=== PATIENT | female | born 1945 | race Two or more races ===

== ENCOUNTER 2017-02-13 23:59 | Emergency (ER) | payer OTHER, MEDICAID ==
[~2017-02-13] VITALS: Ht 160 cm; Wt 68.0 kg
[2017-02-14 00:41] LABS: Basophils # (auto) 0.1 uL; Basophils % (auto) 1.2 % (0.0-2.0); Eosinophils # (auto) 0.3 uL; Eosinophils % (auto) 4.8 % (0.0-7.0); Hematocrit 33.9 % (36.0-46.0); Lymphocytes # (auto) 1.6 uL; Lymphocytes % (auto) 29.1 % (10.0-50.0); Mean Corpuscular Hemoglobin 28.4 pg (28.0-32.0); Mean Corpuscular Hgb Conc. 32.5 g/dL (32.0-36.0); Mean Corpuscular Volume 87.4 fL (80.0-100.0); Mean Platelet Volume 8.6 fL (7.4-10.4); Monocytes # (auto) 0.4 uL; Monocytes % (auto) 7.7 % (0.0-12.0); Neutrophils # (auto) 3.2 uL; Neutrophils % (auto) 57.2 % (37.0-80.0); Platelet Count (auto) 182 10^3/uL (140-450); White Blood Cell 5.6 10^3/uL (4.4-10.8)
[2017-02-14 00:55] LABS: INR 0.95 (0.9-1.15); Partial Thromboplastin Time 25.4 sec (22.64-33.71); Prothrombin Time 10.3 sec (9.37-12.3)
[2017-02-14 00:56] LABS: Anion Gap 10 (5-15); Aspartate Aminotransferase 23 U/L (15-37); BUN/Creatinine Ratio 17.2; Blood Urea Nitrogen 10 mg/dL (7-18); Calcium 9.4 mg/dL (8.5-10.1); Carbon Dioxide 26 mmol/L (21-32); Chloride 103 mmol/L (98-107); GFR African American 131 mL/min; GFR Non-African American 109 mL/min; Glucose 150 mg/dL (74-106); Potassium 3.7 mmol/L (3.5-5.1); Sodium 139 mmol/L (136-145)
[2017-02-14 01:01] LABS: Alkaline Phosphatase 61 U/L (45-117); Bilirubin, Total 0.5 mg/dL (0.2-1.0)
[2017-02-14 01:03] LABS: B-Type Natriuretic Peptide 41.6 pg/mL (0-100); Temperature: 21.6 C (20.0-25.0)
[2017-02-14] MEDS ORDERED: SODIUM CHLORIDE 0.9% 1,000 ML IV ONE (07:15)
[2017-02-14 07:45] VITALS: BP 134/75
== END 2017-02-14 09:24 | disposition home or self-care (01) ==
LOC: ER 02-14 00:09
CPT/HCPCS: 36415 ×2; 71010 ×2; 80053 ×2; 83735 ×2; 83880 ×2; 84443 ×2; 84484 ×2; 85025 ×2; 85610 ×2; 85730 ×2; 93005 ×2; 94761 ×2; 96360 ×2; 99285; J7030

== ENCOUNTER → 2022-09-21 | Outpatient (CLI) | payer OTHER, MEDICAID | END | disposition home or self-care (01) | LOC: LAB 09:54 | PROVIDERS: ATTEND Internal Medicine Pulmonary Disease | DX: Z01.812 Encounter for preprocedural laboratory examination (principal); Z20.822 Contact with and (suspected) exposure to COVID-19 | CPT/HCPCS: 36415; 87426 ==

== ENCOUNTER 2023-07-09 18:37 | Inpatient (IN) | payer OTHER, MEDICAID ==
[~2023-07-09] VITALS: Ht 162.6 cm; Wt 57.0 kg
[2023-07-09 19:40] LABS: Basophils # (auto) 0.1 10 ^3/uL (0-0.2); Basophils % (auto) 2.4 % (0.0-2.0); Eosinophils # (auto) 0.2 10 ^3/uL (0-0.8); Eosinophils % (auto) 3.2 % (0.0-7.0); Hematocrit 33.1 % (36.0-46.0); Hemoglobin 11.2 g/dL (12.2-16.2); Lymphocytes # (auto) 1.6 10 ^3/uL (0.4-5.4); Lymphocytes % (auto) 31.8 % (10.0-50.0); Mean Corpuscular Hemoglobin 30.1 pg (28.0-32.0); Mean Corpuscular Hgb Conc. 33.8 g/dL (32.0-36.0); Mean Corpuscular Volume 89.1 fL (80.0-100.0); Monocytes # (auto) 0.4 10 ^3/uL (0-1.3); Monocytes % (auto) 8.1 % (0.0-12.0); Neutrophils # (auto) 2.8 10 ^3/uL (1.6-8.6); Neutrophils % (auto) 54.5 % (37.0-80.0); Nucleated Red Blood Cells % 0.1 %; Red Blood Cells 3.72 10^6/uL (4.0-5.20); Red Cell Distribution Width 13.3 % (11.8-14.3); White Blood Cell 5.1 10^3/uL (4.4-10.8)
[2023-07-09 19:45] LABS: Urine Bacteria NONE SEEN /hpf (None Seen); Urine Blood Negative /uL (Negative); Urine Clarity Clear (Clear); Urine Color Colorless (Yellow); Urine Protein, UAD Negative (Negative); Urine Specific Gravity 1.008 (1.001-1.035); Urine Urobilinogen Normal (Negative); Urine WBC <1 /hpf (0 - 5)
[2023-07-09 20:04] LABS: Alanine Aminotransferase 16 U/L (7-40); Albumin 4.6 g/dL (3.2-4.8); Alkaline Phosphatase 55 U/L (46-116); Anion Gap 10 (5-15); Aspartate Aminotransferase 11 U/L (13-40); BUN/Creatinine Ratio 17.2 (10.0-20.0); Bilirubin, Total 0.4 mg/dL (0.2-1.0); Blood Urea Nitrogen 11 mg/dL (9-23); Calcium 10.1 mg/dL (8.7-10.4); Carbon Dioxide 23 mmol/L (20-30); Chloride 99 mmol/L (98-107); Glucose 174 mg/dL (74-106); Potassium 3.8 mmol/L (3.5-5.1); Sodium 132 mmol/L (136-145); Total Protein 7.2 g/dL (5.7-8.2)
[2023-07-10] MEDS ORDERED: LACTATED RINGER'S 1,000 ML IV ONE (04:15)
[2023-07-10 04:45] VITALS: PULSE 73; RESP 12; O2SAT 99
[2023-07-10] MEDS ORDERED: DEXTROSE (50%) 50ML SYRG IV PRN (05:00)
[2023-07-10] MEDS ORDERED: MORPHINE SULFATE 4 MG/ML SYR/VIAL IV ONE (05:00)
[2023-07-10] MEDS ORDERED: ONDANSETRON HCL 4 MG/2 ML VIAL IV ONE (05:00)
[2023-07-10] MEDS ORDERED: ACETAMINOPHEN 325 MG TAB PO PRN (05:00)
[2023-07-10] MEDS ORDERED: ONDANSETRON HCL 4 MG/2 ML VIAL IV PRN (05:00)
[2023-07-10] MEDS ORDERED: IBUPROFEN 600 MG TAB PO ONE (05:15)
[2023-07-10] MEDS: ACCU-CHEK COMFORT CURVE STRIP VI SCH ×4 (06:55→22:06)
[2023-07-10] MEDS: InsuLIN REG 1unit/0.01ml Soln (100units/ml) SC SCH ×4 (06:58→22:00)
[2023-07-10] MEDS ORDERED: LORazepam 2MG/ML-1ML VIAL IV PRN (09:30)
[2023-07-10] MEDS: ASPirin 81 mg TAB PO SCH (10:00)
[2023-07-10] MEDS: LOSARTAN POTASSIUM 50 MG TAB PO SCH (10:00)
[2023-07-10] MEDS: HCTZ 25 MG TAB PO SCH (10:00)
[2023-07-10] MEDS ORDERED: ENOXAPARIN SOD 40 MG/0.4 ML SYRINGE SC SCH (10:00)
[2023-07-10 10:11] VITALS: PULSE 75; RESP 20; O2SAT 96
[2023-07-10 11:24] LABS: INR 0.98 (0.9-1.15); Partial Thromboplastin Time 26.1 SEC (24.5-34.5); Prothrombin Time 10.3 sec (9.3-11.8)
[2023-07-10] MEDS ORDERED: GADOTERATE MEG 7.5 MMOL/15ml INJ (0.5MMOL/ml) IV ONE (11:51)
[2023-07-10] MEDS ORDERED: HCTZ 25 MG TAB PO ONE (16:30)
[2023-07-10] MEDS ORDERED: TIMO0.5S32 EACHEYE (16:50)
[2023-07-10] MEDS ORDERED: IBUP-1455 PO (16:50)
[2023-07-10] MEDS ORDERED: METF-372 PO (16:50)
[2023-07-10] MEDS ORDERED: [UNRECOGNIZED DRUG - CODE] (16:50)
[2023-07-10] MEDS ORDERED: INSU1INJ19 SC (16:50)
[2023-07-10] MEDS ORDERED: GLUC-245 (16:50)
[2023-07-10] MEDS ORDERED: LATA0.008 EACHEYE (16:50)
[2023-07-10 17:24] VITALS: BP 130/67; PULSE 88; RESP 16; TEMP 98.3; O2SAT 95
[2023-07-10 18:00] LABS: % Iron Saturation 17.1 % (15-50)
[2023-07-10 18:03] LABS: Thyroid Stimulating Hormone 3.66 uIU/mL (0.55-4.78)
[2023-07-10 22:00] VITALS: BP 120/67; PULSE 72; RESP 18; TEMP 98.1; O2SAT 97
[2023-07-11 05:00] VITALS: BP 116/63; PULSE 76; RESP 16; TEMP 98.1; O2SAT 99
[2023-07-11] MEDS: ACCU-CHEK COMFORT CURVE STRIP VI SCH ×4 (06:16→22:00)
[2023-07-11 06:19] LABS: Basophils # (auto) 0.1 10 ^3/uL (0-0.2); Eosinophils # (auto) 0.2 10 ^3/uL (0-0.8); Eosinophils % (auto) 3.1 % (0.0-7.0); Hematocrit 33.5 % (36.0-46.0); Hemoglobin 11.1 g/dL (12.2-16.2); Lymphocytes # (auto) 1.2 10 ^3/uL (0.4-5.4); Mean Corpuscular Hemoglobin 29.9 pg (28.0-32.0); Mean Corpuscular Hgb Conc. 33.1 g/dL (32.0-36.0); Mean Corpuscular Volume 90.6 fL (80.0-100.0); Monocytes # (auto) 0.5 10 ^3/uL (0-1.3); Monocytes % (auto) 9.6 % (0.0-12.0); Neutrophils # (auto) 3.1 10 ^3/uL (1.6-8.6); Neutrophils % (auto) 62.3 % (37.0-80.0); Red Cell Distribution Width 13.3 % (11.8-14.3)
[2023-07-11] MEDS: InsuLIN REG 1unit/0.01ml Soln (100units/ml) SC SCH ×4 (06:23→22:03)
[2023-07-11 06:30] LABS: Calcium 9.3 mg/dL (8.7-10.4); Chloride 103 mmol/L (98-107); Potassium 3.7 mmol/L (3.5-5.1); Sodium 136 mmol/L (136-145)
[2023-07-11 06:31] LABS: Anion Gap 8 (5-15); Carbon Dioxide 25 mmol/L (20-30)
[2023-07-11 06:36] LABS: BUN/Creatinine Ratio 16.1 (10.0-20.0); Blood Urea Nitrogen 9 mg/dL (9-23); Glucose 169 mg/dL (74-106)
[2023-07-11 06:37] LABS: Magnesium 1.9 mg/dL (1.6-2.6)
[2023-07-11 06:42] LABS: Triglycerides 206 mg/dL (< 150)
[2023-07-11 06:43] LABS: LDL Cholesterol 142 mg/dL (< 100)
[2023-07-11 06:44] LABS: Cholesterol 204 mg/dL (< 200); HDL Cholesterol 43 mg/dL (40-59)
[2023-07-11 08:00] VITALS: PULSE 70; RESP 16; O2SAT 96
[2023-07-11] MEDS: HCTZ 25 MG TAB PO SCH (08:10)
[2023-07-11] MEDS ORDERED: FERROUS SULFATE 325mg EC TAB PO ONE (08:30)
[2023-07-11 09:00] VITALS: BP 123/66; PULSE 70; RESP 16; TEMP 97; O2SAT 96
[2023-07-11] MEDS: ASPirin 81 mg TAB PO SCH (09:35)
[2023-07-11] MEDS: LOSARTAN POTASSIUM 50 MG TAB PO SCH (09:35)
[2023-07-11] MEDS ORDERED: HCTZ 25 MG TAB PO SCH (10:00)
[2023-07-11 13:00] VITALS: BP 127/61; PULSE 74; RESP 18; TEMP 97.6; O2SAT 99
[2023-07-11] MEDS: FERROUS SULFATE 325mg EC TAB PO SCH (18:09)
[2023-07-11 20:00] VITALS: PULSE 85; RESP 19; O2SAT 96
[2023-07-11 22:00] VITALS: BP 121/78; PULSE 85; RESP 19; TEMP 97.6; O2SAT 96
[2023-07-11] MEDS: ATORVASTATIN 20 MG TAB PO SCH (22:00)
[2023-07-12 05:00] VITALS: BP 108/63; PULSE 84; RESP 18; TEMP 97.7; O2SAT 96
[2023-07-12] MEDS: ACCU-CHEK COMFORT CURVE STRIP VI SCH ×4 (06:03→21:21)
[2023-07-12] MEDS: InsuLIN REG 1unit/0.01ml Soln (100units/ml) SC SCH ×4 (06:05→21:25)
[2023-07-12] MEDS: FERROUS SULFATE 325mg EC TAB PO SCH ×2 (07:58→17:43)
[2023-07-12 09:00] VITALS: BP 118/64; PULSE 84; RESP 18; TEMP 97.4; O2SAT 94
[2023-07-12] MEDS: HCTZ 25 MG TAB PO SCH (09:50)
[2023-07-12] MEDS: ASPirin 81 mg TAB PO SCH (09:51)
[2023-07-12] MEDS: LOSARTAN POTASSIUM 50 MG TAB PO SCH (09:54)
[2023-07-12] MEDS ORDERED: ASPI-325 PO (10:55)
[2023-07-12] MEDS ORDERED: FER325T PO (10:55)
[2023-07-12] MEDS ORDERED: LOSA100T58 PO (10:55)
[2023-07-12] MEDS ORDERED: ATO40T PO (10:55)
[2023-07-12 13:00] VITALS: BP 145/74; PULSE 80; RESP 18; TEMP 98.2; O2SAT 98
[2023-07-12 17:00] VITALS: BP 124/73; PULSE 86; RESP 19; TEMP 97.5; O2SAT 92
[2023-07-12 20:20] VITALS: RESP 18
[2023-07-12] MEDS: ATORVASTATIN 20 MG TAB PO SCH (21:21)
[2023-07-12 22:00] VITALS: BP 148/67; PULSE 87; RESP 20; TEMP 97.3; O2SAT 94
[2023-07-13 05:00] VITALS: BP 114/55; PULSE 77; RESP 16; TEMP 97.4; O2SAT 96
[2023-07-13] MEDS: ACCU-CHEK COMFORT CURVE STRIP VI SCH (06:21)
[2023-07-13] MEDS: InsuLIN REG 1unit/0.01ml Soln (100units/ml) SC SCH (06:22)
[2023-07-13 08:00] VITALS: PULSE 93; RESP 17
[2023-07-13] MEDS: FERROUS SULFATE 325mg EC TAB PO SCH (08:12)
[2023-07-13 09:00] VITALS: BP 124/63; PULSE 93; RESP 17; TEMP 97.6; O2SAT 96
[2023-07-13] MEDS: HCTZ 25 MG TAB PO SCH (10:00)
[2023-07-13] MEDS: ASPirin 81 mg TAB PO SCH (10:00)
[2023-07-13] MEDS: LOSARTAN POTASSIUM 50 MG TAB PO SCH (10:00)
== END 2023-07-13 10:00 | disposition home health service (06) | DRG 312 ==
LOC: ER 18:37 → OVERFLOW 07-10 05:02 → WEST WING 07-10 15:35
PROVIDERS: ADMIT Internal Medicine Geriatric Medicine; ATTEND Student in an Organized Health Care Education/Training Program
DX: R55 Syncope and collapse (principal); E87.1 Hypo-osmolality and hyponatremia; H81.10 Benign paroxysmal vertigo, unspecified ear; E11.65 Type 2 diabetes mellitus with hyperglycemia; I10 Essential (primary) hypertension; R56.9 Unspecified convulsions; E78.5 Hyperlipidemia, unspecified; D64.9 Anemia, unspecified; G45.4 Transient global amnesia; Z86.73 Personal history of transient ischemic attack (TIA), and cerebral infarction without residual deficits; Z83.3 Family history of diabetes mellitus; Z90.710 Acquired absence of both cervix and uterus
CPT/HCPCS: 36415; 70553; 71045; 80048; 80053; 80061; 81001; 82728; 82962; 83036; 83540; 83550; 83615; 83735; 84443; 84484; 85025; 85045; 85610; 85730; 93005; 93306; 93886; 95819; 96360; 97110; 97116; 97163; 97530; G0378; J1815; J2405

== ENCOUNTER 2025-05-07 20:23 | Inpatient (IN) | payer OTHER, MEDICAID ==
[~2025-05-07] VITALS: Ht 149.9 cm; Wt 62.0 kg
[~2025-05-07 20:23] MED LIST: ASPI-325 PO; ATOR-507 PO; FER325T PO; GLUC-245; IBUP-1455 PO; INSU1INJ19 SC; LATA0.008 EACHEYE; LOSA-535 PO; METF-372 PO; TIMO0.5S32 EACHEYE; [UNRECOGNIZED DRUG - CODE]
[2025-05-07 21:06] VITALS: PULSE 78; RESP 20; O2SAT 97
[2025-05-07] MEDS: ACETAMINOPHEN 500 MG TAB or CAP PO ONE (21:28)
[2025-05-07] MEDS: ONDANSETRON HCL 4 MG/2 ML VIAL IV ONE (21:28)
[2025-05-07] MEDS: MORPHINE SULFATE INJ 2 MG/ml SYRG IV ONE (21:28)
[2025-05-07 21:37] LABS: Hematocrit 33.6 % (36.0-46.0); Hemoglobin 11.1 g/dL (12.2-16.2); Mean Corpuscular Hemoglobin 30.5 pg (28.0-32.0); Mean Corpuscular Volume 92.2 fL (80.0-100.0); Nucleated Red Blood Cells % 0.1 %
[2025-05-07 21:38] LABS: Urine Protein, UAD Negative (Negative)
--- NOTE | 2025-05-07 21:41 | ED.PDOC ---
Musculoskeletal HPI Comments 79 year old female presents to the ED via EMS with a chief complaint of LT hip pain s/p fall onset today (05/07/25). Patient states she was at home, was going to get up from recliner sofa when she slipped, landed on LT hip, heard a "pop." Patient states she had a LT hip replacement surgery about 15 minutes ago. She is currently experiencing 10/10, pain worsens with movement. PMHx HTN, HLD, DM. Denies head injury, LOC, nausea, vomiting, diarrhea, headache, abdominal pain, chest pain, shortness of breath. No other symptoms or modifying factors present at this time. Chief Complaint: Fall Injury Time Seen by MD: 21:25 Primary Care Provider: NONE Reviewed Notes: Medications, Allergies Allergies: Coded Allergies: NO KNOWN ALLERGIES (Unverified , 02/14/17) Home Meds Active Scripts Losartan Potassium (Losartan Potassium) 100 Mg Tab, 1 TAB PO DAILY, #30 TAB 5 Refills Prov:CELENA CLARK MD 07/12/23 Ferrous Sulfate (Ferrous Sulfate) 325 Mg Tab, 325 MG PO DAILY for 30 Days, #30 TAB 5 Refills Prov:CELENA CLARK MD 07/12/23 Atorvastatin Calcium (Lipitor) 40 Mg Tab, 1 TAB PO DAILY, #30 TAB 5 Refills Prov:CELENA CLARK MD 07/12/23 Aspirin (Aspirin Low Dose) 81 Mg Tab, 81 MG PO DAILY for 100 Days, #100 TAB 3 Refills Prov:CELENA CLARK MD 07/12/23 Reported Medications Insulin Glargine (Basaglar Kwikpen) 100 Unit/Ml Inj, SC 07/10/23 Ibuprofen Micronized (Ibuprofen) 800 Mg Tab, 1 TAB PO TID 07/10/23 Insulin Pen Needle (Easy Comfort Pen [place] 33G X 4 mm) 1 Mis Mis 07/10/23 Metformin Hydrochloride (Metformin Hcl) 1,000 Mg Tab, 1 TAB PO BID 07/10/23 Latanoprost (LATANOPROST) 0.005 % Narcisa, EACHEYE 07/10/23 Timolol Maleate (Ophth) (Timolol Maleate) 0.5 % Narcisa, EACHEYE 07/10/23 Glucose Blood (ONETOUCH VERIO IQ TEST ST) Verio Iq Maricarmen, STRIP 07/10/23 Information Source: Patient, Emergency Med Personnel Mode of Arrival: EMS Location: Left Extremity Location: Hip Timing: Hours Prehospital treatment: None Severity: Moderate Bear Weight: Limited Pain: Moderate Mechanism: Spontaneous Circumstances: Fall Onset of Symptoms: After Trauma Symptoms: Pain DVT Risk Factors: NONE History of: Hip Operation Associated signs and symptoms: Hip pain Vital Signs Vital Signs Date Time Temp Pulse Resp B/P (MAP) Pulse Ox O2 Delivery O2 Flow Rate FiO2 05/07/25 23:30 98.1 108 18 141/63 (89) 97 98.1 05/07/25 21:06 Room Air* 0 21 Physical Exam PHYSICAL EXAM: General: Awake, alert and oriented. No acute distress. Skin: Skin in warm, dry and intact without rashes or lesions. HEENT: The head is normocephalic and atraumatic. Conjunctivae are clear without exudates or hemorrhage. Sclera is non-icteric. Neck: Normal range of motion. No JVD. Cardiac: Regular rate Respiratory: No signs of respiratory distress. No Stridor. Extremities: Left hip tender Neurological: The patient is awake, alert and oriented to person, place, and time with normal speech. Speech is clear. There is no facial asymmetry. Psychiatric: Appropriate mood and affect. Good judgement and insight. Review of Systems: REVIEW OF SYSTEMS: General: No fever, no chills, or fatigue HEENT: No sore throat, no earache, no congestion, no neck pain. Cardiac: No chest pain. No palpitations. Lungs: No shortness of breath, no cough. GI: No nausea, no vomiting, no diarrhea, no constipation, no abdominal pain : No dysuria, frequency, or urgency. No hematuria. Musculoskeletal: Left hip pain Skin: No rash, no itching. 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 Was a procedure done?: No Differential Diagnosis EXT Differential Diagnosis: Other (Differential diagnoses considered include but are not limited to closed head injury, skull fracture, TBI, long bone fracture, rib fracture, pneumothorax, spinal fracture, spinal injury, cardiac contusion, organ laceration, pelvic fracture, laceration, soft tissue injury, vascular injury, other) X-Ray, Labs, Meds, VS Vital Signs Date Time Temp Pulse Resp B/P (MAP) Pulse Ox O2 Delivery O2 Flow Rate FiO2 05/07/25 23:30 98.1 108 18 141/63 (89) 97 98.1 05/07/25 23:16 77 18 123/78 05/07/25 21:28 78 20 166/87 05/07/25 21:06 98.1 76 20 161/93 (115) 97 98.1 05/07/25 21:06 78 20 97 Room Air* 0 21 05/07/25 20:30 97.8 100 18 160/74 (102) 96 97.8 Lab Test 05/07/25 21:28 05/07/25 21:25 Range/Units Urine Color Colorless Yellow Urine Clarity Clear Clear Urine pH 6.5 5.0-9.0 Urine Specific [place] 1.010 1.001-1.035 Urine Protein Negative Negative Urine Ketones 1+ H Negative Urine Blood Negative Negative /uL Urine Nitrite Negative Negative Urine Bilirubin Negative Negative Urine Urobilinogen Normal Negative mg/dL Urine Leukocyte Esterase 1+ Negative /uL Urine RBC <1 0 - 4 /hpf Urine Microscopic WBC 12 H 0-5 /HPF Urine Squamous Epithelial Cells Few <5 /hpf Urine Bacteria Many H None Seen /hpf Urine Glucose 3+ H Normal mg/dL White Blood Count 9.0 4.4-10.8 10^3/uL Red Blood Count 3.64 L 4.0-5.20 10^6/uL Hemoglobin 11.1 L 12.2-16.2 g/dL Hematocrit 33.6 L 36.0-46.0 % Mean Corpuscular Volume 92.2 80.0-100.0 fL Mean Corpuscular Hemoglobin 30.5 28.0-32.0 pg Mean Corpuscular Hemoglobin Concent 33.1 32.0-36.0 g/dL Red Cell Distribution Width 13.6 11.8-14.3 % Platelet Count 202 140-450 10^3/uL Mean Platelet Volume 8.9 6.9-10.8 fL Neutrophils (%) (Auto) 79.1 37.0-80.0 % Lymphocytes (%) (Auto) 12.4 10.0-50.0 % Monocytes (%) (Auto) 6.5 0.0-12.0 % Eosinophils (%) (Auto) 1.2 0.0-7.0 % Basophils (%) (Auto) 0.8 0.0-2.0 % Neutrophils # (Auto) 7.1 1.6-8.6 10 ^3/uL Lymphocytes # (Auto) 1.1 0.4-5.4 10 ^3/uL Monocytes # (Auto) 0.6 0-1.3 10 ^3/uL Eosinophils # (Auto) 0.1 0-0.8 10 ^3/uL Basophils # (Auto) 0.1 0-0.2 10 ^3/uL Nucleated Red Blood Cells 0.1 % Sodium Level 135 L 136-145 mmol/L Potassium Level 3.6 3.5-5.1 mmol/L Chloride Level 101 98-107 mmol/L Carbon Dioxide Level 22 20-31 mmol/L Anion Gap 12 5-15 Blood Urea Nitrogen 11 9-23 mg/dL Creatinine 0.66 0.550-1.02 mg/dL Glomerular Filtration Rate Calc 89 >90 mL/min BUN/Creatinine Ratio 16.7 10.0-20.0 Serum Glucose 221 H 74-106 mg/dL Calcium Level 10.3 8.7-10.4 mg/dL Current Medications Medications (Trade) Dose Ordered Sig/Rox Route Start Time Stop Time Status Last Admin Morphine Sulfate 2 mg ONCE ONCE IV 05/07/25 21:15 05/07/25 21:16 DC 05/07/25 21:28 Acetaminophen (Tylenol Tablet Or Capsule) 1,000 mg ONCE ONCE PO 05/07/25 21:15 05/07/25 21:16 DC 05/07/25 21:28 Ondansetron HCl (Zofran) 4 mg ONCE ONCE IV 05/07/25 21:15 05/07/25 21:16 DC 05/07/25 21:28 Cefepime HCl 50 ml @ 12.5 mls/hr ONCE ONCE IV 05/07/25 22:45 05/08/25 02:44 05/07/25 23:[address] [address] Ph: [phone] DIAGNOSTIC IMAGING Diagnostic Imaging Report : [id number] Signed PATIENT: TRELL KAUFMAN ACCT: [id number] UNIT: [id number] : 1945 LOC: ER ROOM / BED: / AGE / SEX: 79 / F ADM STATUS: REG ER SERVICE 12 ORDERING PHYSICIAN: SUKH LOCKHART MD PROCEDURE(s): LHPCT - CT L HIP WITH OUT CONTRAST REASON: L hip injury ORDER NUMBER(s): [id number], ACCESSION NUMBER(s): [id number] INDICATION: L hip injury COMPARISON: None TECHNIQUE: CT of the left hip was performed without contrast. Volume transverse images were obtained and reconstructed in multiple planes using bone and soft tissue algorithms. All CT scans at this medical facility are performed using dose modulation techniques as appropriate to a performed exam including the following: Automated exposure control was utilized; adjustment of the MA and/or KV according to patient size; and use of iterative reconstruction technique. Radiation Dose Information: CT Dose: CTDI volume is 9.4 mGy. Dose-length product is 348 mGy*cm FINDINGS: The alignment is normal. The joint spaces are normal. Minimally displaced acute traumatic fractures of the left superior pubic rami and left inferior pubic rami Surgical fixation hardware seen throughout the left femur. No evidence of hardware complication. There is no joint effusion. The soft tissues are normal. IMPRESSION: 1. Minimally displaced acute traumatic fractures of the left superior pubic rami and left inferior pubic rami 2. Surgical fixation hardware seen throughout the left femur. No evidence of hardware complication. ATED BY: LIZZETH COOPER MD DICTATED DATE/TIME: 05/07/252218 SIGNED BY: LIZZETH COOPER MD SIGNED DATE/TIME: 05/07/252218 CC: Time of 1ST Reevaluation: 21:55 Reevaluation 1ST: Improved Patient Education/Counseling: Need For Follow Up Family Education/Counseling: Need For Follow Up Departure 1 Departure Time of Disposition: 22:38 Impression: Primary Impression: Fracture of superior ramus of left pubis Additional Impressions: Fracture of left inferior pubic ramus Urinary tract infection Disposition: ADMITTED INPATIENT Condition: Stable Critical Care Note Critical Care Time?: No Stability Stability form required: No I personally scribed for MINTAH,CHAILLE A MD ([email or web address]) on 05/07/25 at 21:41. Electronically submitted by Amrita Manley ([email or web address]). I personally scribed for SUKH LOCKHART MD ([email or web address]) on 05/07/25 at 23:41. Electronically submitted by Amrita Manley ([email or web address]). SUKH LOCKHART MD May 07, 2025 21:41
[2025-05-07 21:48] LABS: Chloride 101 mmol/L (98-107); Potassium 3.6 mmol/L (3.5-5.1)
[2025-05-07 21:49] LABS: Anion Gap 12 (5-15); Calcium 10.3 mg/dL (8.7-10.4); Carbon Dioxide 22 mmol/L (20-31)
[2025-05-07 21:54] LABS: BUN/Creatinine Ratio 16.7 (10.0-20.0); Blood Urea Nitrogen 11 mg/dL (9-23); Glucose 221 mg/dL (74-106); Sodium 135 mmol/L (136-145)
--- NOTE | 2025-05-07 22:21 | DVH ---
INDICATION: L hip injury COMPARISON: None TECHNIQUE: CT of the left hip was performed without contrast. Volume transverse images were obtained and reconstructed in multiple planes using bone and soft tissue algorithms. All CT scans at this medical facility are performed using dose modulation techniques as appropriate t o a performed exam including the following: Automated exposure control was utilized; adjustment of th e MA and/or KV according to patient size; and use of iterative reconstruction technique. Radiation Dose Information: CT Dose: CTDI volume is 9.4 mGy. Dose-length product is 348 mGy*cm FINDINGS: The alignment is normal. The joint spaces are normal. Minimally displaced acute traumatic fractures of the left superior pubic rami and left inferior pubic rami Surgical fixation hardware seen throughout the left femur. No evidence of hardware complication. There is no joint effusion. The soft tissues are normal. IMPRESSION: 1. Minimally displaced acute traumatic fractures of the left superior pubic rami and left inferior pu bic rami 2. Surgical fixation hardware seen throughout the left femur. No evidence of hardware complication.
[2025-05-07] MEDS: CEFEPIME 1GM/ 50ML 50 ML IV ONE (23:05)
[2025-05-08] VITALS (10 sets, daily range): BP systolic 111–161; BP diastolic 55–81; PULSE 75–96; RESP 15–18; TEMP 97.9–99; O2SAT 92–94
--- NOTE | 2025-05-08 01:28 | DVHHP2 ---
History of Present Illness History of Present Illness This 79-year-old female with past medical history of DM2, HLD, HTN, left hip surgery 15 years ago, Anemia, Glaucoma BIBEMS due to left hip and left sided pubic area pain. As per patient, she lives alone, was trying to move herself from reclining chair at evening time and suddenly slipped, eventually landed on left side of the hip and started pain which is 10/10 intensity, localized, continuous dull pain, aggravated on movement and no relieving factor. Patient stated she heard a sound but not sure it is bone fracture or not.she had history of left hip surgery approximately 15 years ago. Patient denies hitting her head, loss of consciousness, vertigo, headache, chest pain, SOB, abdominal pain, dysuria. Susan (RN) interpreting [place] language. Patient ambulating at home with walker. 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 Family History: Nothing contributing Smoker: Non-Smoker Alcohol: Denies ETOH Use Drugs: Denies Drug Use Lives In: Home Allergy: No known allergic Review of Systems Constitutional: Yes: Other (Patient in acute distress due to pain); No: Fever, Chills, Sweats, Weakness, Malaise Eyes: No: Pain, Vision change, Conjunctivae inflammation, Eyelid inflammation, Other, Redness ENT: No: Ear pain, Ear discharge, Nose pain, Nose discharge, Nose congestion, Mouth pain, Mouth swelling, Throat pain, Throat swelling, Other Respiratory: No: Cough, Dry, Shortness of breath, SOB with excertion, Wheezing, Hemoptysis, Pleuritic Pain, Sputum, Wheezing, Other Gastrointestinal: No: Nausea, Vomiting, Abdominal Pain, Diarrhea, Constipation, Melena, Hematochezia, Other Genitourinary: No Dysuria, No Frequency, No Incontinence, No Hematuria, No Retention, No Other Musculoskeletal: leg pain; No: other, neck pain, shoulder pain, arm pain, back pain, hand pain, foot pain Skin: No: Rash, Lesions, Jaundice, Bruising, Other Allergies: Coded Allergies: NO KNOWN ALLERGIES (Unverified , 02/14/17) Exam Vital Signs Vital Signs Date Time Temp Pulse Resp B/P (MAP) Pulse Ox O2 Delivery O2 Flow Rate FiO2 05/07/25 23:30 98.1 108 18 141/63 (89) 97 98.1 05/07/25 21:06 Room Air* 0 21 General Appearance: Alert, moderate distress HEENT: Atraumatic, PERRLA, EOMI Respiratory: Clear to auscultation, Normal air movement Cardiovascular: Regular rate, Normal S1, Normal S2 Abdominal: Soft, No tenderness Extremities: No clubbing, No cyanosis, No edema, Other (Tenderness palpation on left hip area including pubic bone) Skin: No rashes, No breakdown Neuro: Other (Gait instability) Labs/Xrays Labs Test 05/07/25 21:28 05/07/25 21:25 Range/Units Urine Color Colorless Yellow Urine Clarity Clear Clear Urine pH 6.5 5.0-9.0 Urine Specific [place] 1.010 1.001-1.035 Urine Protein Negative Negative Urine Ketones 1+ H Negative Urine Blood Negative Negative /uL Urine Nitrite Negative Negative Urine Bilirubin Negative Negative Urine Urobilinogen Normal Negative mg/dL Urine Leukocyte Esterase 1+ Negative /uL Urine RBC <1 0 - 4 /hpf Urine Microscopic WBC 12 H 0-5 /HPF Urine Squamous Epithelial Cells Few <5 /hpf Urine Bacteria Many H None Seen /hpf Urine Glucose 3+ H Normal mg/dL White Blood Count 9.0 4.4-10.8 10^3/uL Red Blood Count 3.64 L 4.0-5.20 10^6/uL Hemoglobin 11.1 L 12.2-16.2 g/dL Hematocrit 33.6 L 36.0-46.0 % Mean Corpuscular Volume 92.2 80.0-100.0 fL Mean Corpuscular Hemoglobin 30.5 28.0-32.0 pg Mean Corpuscular Hemoglobin Concent 33.1 32.0-36.0 g/dL Red Cell Distribution Width 13.6 11.8-14.3 % Platelet Count 202 140-450 10^3/uL Mean Platelet Volume 8.9 6.9-10.8 fL Neutrophils (%) (Auto) 79.1 37.0-80.0 % Lymphocytes (%) (Auto) 12.4 10.0-50.0 % Monocytes (%) (Auto) 6.5 0.0-12.0 % Eosinophils (%) (Auto) 1.2 0.0-7.0 % Basophils (%) (Auto) 0.8 0.0-2.0 % Neutrophils # (Auto) 7.1 1.6-8.6 10 ^3/uL Lymphocytes # (Auto) 1.1 0.4-5.4 10 ^3/uL Monocytes # (Auto) 0.6 0-1.3 10 ^3/uL Eosinophils # (Auto) 0.1 0-0.8 10 ^3/uL Basophils # (Auto) 0.1 0-0.2 10 ^3/uL Nucleated Red Blood Cells 0.1 % Sodium Level 135 L 136-145 mmol/L Potassium Level 3.6 3.5-5.1 mmol/L Chloride Level 101 98-107 mmol/L Carbon Dioxide Level 22 20-31 mmol/L Anion Gap 12 5-15 Blood Urea Nitrogen 11 9-23 mg/dL Creatinine 0.66 0.550-1.02 mg/dL Glomerular Filtration Rate Calc 89 >90 mL/min BUN/Creatinine Ratio 16.7 10.0-20.0 Serum Glucose 221 H 74-106 mg/dL Calcium Level 10.3 8.7-10.4 mg/dL SEPSIS Sepsis Screen Date sepsis recognized/suspect: May 07, 2025 Time Sepsis recognized/suspect: 2107 Recent Procedure: No On Antibiotic Therapy: No Respiratory Rate >20: No Heart Rate >90: No Temp<36 C (96.8 F) or >38.3 C: No SBP <90 or MAP <65 mmHG: No New Acute Mental Status Change: No Is the patient on CPAP, BIPAP,: No Physician Orders Ct L Hip With Out Contrast (05/07/25 21:13) Cefepime 1gm/ 50ml (Maxipime 1gm/50ml) (05/07/25 22:45) Admit (05/07/25 23:58) Vital Signs Date Time Temp Pulse Resp B/P (MAP) Pulse Ox O2 Delivery O2 Flow Rate FiO2 05/07/25 23:30 98.1 108 18 141/63 (89) 97 98.1 05/07/25 23:16 77 18 123/78 05/07/25 21:28 78 20 166/87 05/07/25 21:06 98.1 76 20 161/93 (115) 97 98.1 05/07/25 21:06 78 20 97 Room Air* 0 21 05/07/25 20:30 97.8 100 18 160/74 (102) 96 97.8 Laboratory Tests Test 05/07/25 21:25 White Blood Count 9.0 10^3/uL (4.4-10.8) Medications Medications Dose Ordered Sig/Rox Route Start Time Stop Time Status Last Admin Dose Admin Acetaminophen 1,000 mg ONCE ONCE PO 05/07/25 21:15 05/07/25 21:16 DC 05/07/25 21:28 1,000 MG Cefepime HCl 50 ml @ 12.5 mls/hr ONCE ONCE IV 05/07/25 22:45 05/08/25 02:44 05/07/25 23:05 12.5 MLS/HR Morphine Sulfate 2 mg ONCE ONCE IV 05/07/25 21:15 05/07/25 21:16 DC 05/07/25 21:28 2 MG Ondansetron HCl 4 mg ONCE ONCE IV 05/07/25 21:15 05/07/25 21:16 DC 05/07/25 21:28 4 MG Assessment/Plan Assessment/Plan # Displaced acute traumatic fractures of the left superior pubic rami and left inferior pubic rami -Patient came with pain on hip and pubic area -History of fall at home before came to hospital -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 No evidence of hardware complication. -Received cefepime, acetaminophen, morphine, ondansetron in ER -Tylenol 650 mg p.o. p.r.n. -Dilaudid 0.5 mg IV stat -Morphine 2 mg IV q.6 p.r.n. for pain -Orthopedic consult # Urinary tract infection - UA : Ketones 1+, leukocyte esterase 1+, WBC 12, bacteria many -Ceftriaxone 1 g daily -Urine culture follow # Type 2 diabetes mellitus with hyperglycemia -CMP blood sugar 221, on admission -Hold home medicine metformin 1000 mg -Insulin sliding scale -HbA1c # Hyperlipidemia Atorvastatin 40 mg p.o. daily # Normocytic normochromic anemia -Hemoglobin 11.1, HCT 33.6 Ferrous sulfate 325 mg p.o. daily # Glaucoma -Timolol 0.5% 1 drop both eye b.i.d. -Latanoprost 0.005% 1 drop each eye daily # Hyponatremia Sodium 135 DIET: REGULAR GI prophylaxis: Pantoprazole 40 mg p.o. daily DVT prophylaxis: Lovenox 30 mg sc daily. Goals of care discussions, more than 29 minute spent. 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 Fischer. Plan discussed with: Patient, Other (Nurse) Date of Service: May 07, 2025 Billing Provider: TEN FISCHER MD Common Visit Codes: [id number] INP/OBS CARE (HIGH) Secondary Visit Codes: [id number] CARE PLAN 30 MINUTES LATHA OREILLY RESIDENT May 08, 2025 01:28
[2025-05-08] MEDS: HYDROmorphone HCL 2 MG/ML VL/or syr IV ONE (02:26)
[2025-05-08] MEDS ORDERED: DEXTROSE (50%) 50ML SYRG IV PRN (03:00)
--- NOTE | 2025-05-08 04:06 | DVH ---
CHEST RADIOGRAPH Indication: preop Technique: Single frontal view of the chest was obtained COMPARISON: XY CHEST XRAY 1 VIEW on DOS: 07/09/23 FINDINGS: Lines and Tubes: None Lungs: Clear Pleura: No effusion. No pneumothorax. Cardiomediastinal contours: Unremarkable. Atherosclerotic vascular calcifications. Bones: Unremarkable IMPRESSION: 1. No acute disease.
[2025-05-08] MEDS: ACCU-CHEK COMFORT CURVE STRIP VI SCH (07:04)
[2025-05-08] MEDS: InsuLIN REG 1unit/0.01ml Soln (100units/ml) SC SCH (07:04)
[2025-05-08 07:11] LABS: INR 0.97 (0.9-1.15); Partial Thromboplastin Time 25.6 SEC (24.5-34.5); Prothrombin Time 10.3 sec (9.3-11.8)
[2025-05-08] MEDS: FERROUS SULFATE 325mg EC TAB PO SCH (08:09)
[2025-05-08] MEDS: cefTRIAXone 1GM/50ML D5W 50 ML IV SCH (08:35)
[2025-05-08] MEDS: TIMOLOL MAL 0.5% OPTH(EYE) SOL 5ML EACHEYE SCH (11:00)
[2025-05-08] MEDS: MORPHINE SULFATE INJ 2 MG/ml SYRG IV PRN (11:41)
[2025-05-08] MEDS: ATORVASTATIN 20 MG TAB PO SCH (21:23)
[2025-05-08] MEDS: LATANOPROST 0.005 % OPTH(EYE) SOL 2.5ML EACHEYE SCH (21:25)
--- NOTE | 2025-05-08 23:23 | DVHPN2 ---
Subjective seen in bed resting Reviewed: H&P, Labs Changes from previous H/P or p: No Changes Eyes: No Pain, No Vision change, No Conjunctivae inflammation, No Eyelid inflammation, No Other, No Redness ENT: No Ear pain, No Ear discharge, No Nose pain, No Nose discharge, No Nose congestion, No Mouth pain, No Mouth swelling, No Throat pain, No Throat swelling, No Other Respiratory: No Cough, No Dry, No Shortness of breath, No SOB with excertion, No Wheezing, No Hemoptysis, No Pleuritic Pain, No Sputum, No Other Gastrointestinal: No Nausea, No Vomiting, No Abdominal Pain, No Diarrhea, No Constipation, No Melena, No Hematochezia, No Other Genitourinary: No Dysuria, No Frequency, No Incontinence, No Hematuria, No Retention, No Other Musculoskeletal: No other, No neck pain, No shoulder pain, No arm pain, No back pain, No hand pain; leg pain; No foot pain Skin: No Rash, No Lesions, No Jaundice, No Bruising, No Other Objective Vitals Vital Signs Date Time Temp Pulse Resp B/P (MAP) Pulse Ox O2 Delivery O2 Flow Rate FiO2 05/08/25 21:24 96 18 145/66 05/08/25 21:00 97.9 92 97.9 05/08/25 08:00 Room Air* 0 21 General Appearance: Alert, Oriented X3 HEENT: Atraumatic Lungs: Clear to auscultation Cardiovascular: Regular rate, Normal S1, Normal S2 Abdomen: Normal bowel sounds Medications Current Medications Medications Dose Ordered Sig/Rox Route Start Time Stop Time Status Last Admin Dose Admin Atorvastatin Calcium 40 mg HS PO 05/08/25 22:00 05/08/25 21:23 40 MG Ferrous Sulfate 325 mg BIDWM PO 05/08/25 08:00 05/08/25 17:39 325 MG Timolol Maleate 1 drop BID EACHEYE 05/08/25 10:00 05/08/25 21:25 1 DROP Latanoprost 1 drop HS EACHEYE 05/08/25 22:00 05/08/25 21:25 1 DROP Diagnostic Test (Pha) 1 strip ACHS 05/08/25 07:00 05/08/25 22:21 1 STRIP Insulin Human Regular ACHS SC 05/08/25 07:00 05/08/25 22:23 3 UNITS Dextrose 50 ml UD PRN IV 05/08/25 03:00 Ceftriaxone Sodium 50 ml @ 100 mls/hr DAILY@09 IV 05/08/25 09:00 05/08/25 08:35 100 MLS/HR Morphine Sulfate 2 mg Q6HPRN PRN IV 05/08/25 03:00 05/08/25 21:24 2 MG Enoxaparin Sodium 40 mg DAILY SC 05/09/25 10:00 Laboratory Results Laboratory Tests 05/07/25 21:25 Coagulation Test 05/08/25 06:10 Prothrombin Time 10.3 sec (9.3-11.8) Prothrombin Time INR 0.97 (0.9-1.15) Activated Partial Thromboplast Time 25.6 SEC (24.5-34.5) HgA1c, TSH Test 05/08/25 06:10 Hemoglobin A1c 8.3 % A1C (<5.7) H Thyroid Stimulating Hormone (TSH) 4.11 uIU/mL (0.55-4.78) Urinalysis Test 05/07/25 21:28 Urine Color Colorless (Yellow) Urine Clarity Clear (Clear) Urine pH 6.5 (5.0-9.0) Urine Specific [place] 1.010 (1.001-1.035) Urine Protein Negative (Negative) Urine Ketones 1+ (Negative) H Urine Blood Negative /uL (Negative) Urine Nitrite Negative (Negative) Urine Bilirubin Negative (Negative) Urine Urobilinogen Normal mg/dL (Negative) Urine Leukocyte Esterase 1+ /uL (Negative) Urine RBC <1 /hpf (0 - 4) Urine Microscopic WBC 12 /HPF (0-5) H Urine Squamous Epithelial Cells Few /hpf (<5) Urine Bacteria Many /hpf (None Seen) H Urine Glucose 3+ mg/dL (Normal) H Assessment/Plan Assessment/Plan # Displaced acute traumatic fractures of the left superior pubic rami and left inferior pubic rami -Patient came with pain on hip and pubic area -History of fall at home before came to hospital -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 No evidence of hardware complication. -Received cefepime, acetaminophen, morphine, ondansetron in ER -Tylenol 650 mg p.o. p.r.n. -Dilaudid 0.5 mg IV stat -Morphine 2 mg IV q.6 p.r.n. for pain -Orthopedic consult # Urinary tract infection - UA : Ketones 1+, leukocyte esterase 1+, WBC 12, bacteria many -Ceftriaxone 1 g daily -Urine culture follow # Type 2 diabetes mellitus with hyperglycemia -CMP blood sugar 221, on admission -Hold home medicine metformin 1000 mg -Insulin sliding scale -HbA1c # Hyperlipidemia Atorvastatin 40 mg p.o. daily # Normocytic normochromic anemia -Hemoglobin 11.1, HCT 33.6 Ferrous sulfate 325 mg p.o. daily # Glaucoma -Timolol 0.5% 1 drop both eye b.i.d. -Latanoprost 0.005% 1 drop each eye daily # Hyponatremia Sodium 135 DIET: REGULAR GI prophylaxis: Pantoprazole 40 mg p.o. daily DVT prophylaxis: Lovenox 30 mg sc daily. Plan discussed with: Patient My Orders Orders - KEELEY HODGES MD Procedure Category Date Status Time Code Status CODE 05/08/25 Transmitted 10:45 Consistent DIET 05/08/25 Transmitted Carb(Ccho)Diabetes Lunch Enoxaparin Sodium PHA 05/09/25 In Process (Lovenox) 10:00 Date of Service: May 08, 2025 Billing Provider: KEELEY HODGES MD Common Visit Codes: [id number] INP/OBS CARE(HIGH) KEELEY HODGES MD May 08, 2025 23:23
[2025-05-09] VITALS (8 sets, daily range): BP systolic 109–134; BP diastolic 62–76; PULSE 78–97; RESP 17–18; TEMP 97.8–98.4; O2SAT 90–96
--- NOTE | 2025-05-09 07:49 | DVHINCON2 ---
Date of service: May 09, 2025 Reason for Consultation Left superior/inferior pubic rami fracture History of Present Illness 79 yo F sp mechanical fall and landed onto left side. Immediate pa in/swelling/trouble bearing weight/ felt a pop. No cp/sob/abd pain/nausea/vomiting. hx of Left femur ORIF over 15 years ago. Past Medical History PMHx HTN, HLD, DM Family History: Patient reports no known family medical history. Allergies: Coded Allergies: NO KNOWN ALLERGIES (Unverified , 02/14/17) Home Meds Active Scripts Losartan Potassium (Losartan Potassium) 100 Mg Tab, 1 TAB PO DAILY, #30 TAB 5 Refills Prov:CELENA CLARK MD 07/12/23 Ferrous Sulfate (Ferrous Sulfate) 325 Mg Tab, 325 MG PO DAILY for 30 Days, #30 TAB 5 Refills Prov:CELENA CLARK MD 07/12/23 Atorvastatin Calcium (Lipitor) 40 Mg Tab, 1 TAB PO DAILY, #30 TAB 5 Refills Prov:CELENA CLARK MD 07/12/23 Aspirin (Aspirin Low Dose) 81 Mg Tab, 81 MG PO DAILY for 100 Days, #100 TAB 3 Refills Prov:CELENA CLARK MD 07/12/23 Reported Medications Insulin Glargine (Basaglar Kwikpen) 100 Unit/Ml Inj, SC 07/10/23 Ibuprofen Micronized (Ibuprofen) 800 Mg Tab, 1 TAB PO TID 07/10/23 Insulin Pen Needle (Easy Comfort [address] 33G X 4 mm) 1 Mis Mis 07/10/23 Metformin Hydrochloride (Metformin Hcl) 1,000 Mg Tab, 1 TAB PO BID 07/10/23 Latanoprost (LATANOPROST) 0.005 % Narcisa, EACHEYE 07/10/23 Timolol Maleate (Ophth) (Timolol Maleate) 0.5 % Narcisa, EACHEYE 07/10/23 Glucose Blood (ONETOUCH VERIO IQ TEST ST) Verio Iq Maricarmen, STRIP 07/10/23 Current Medications Current Medications Medications (Trade) Dose Ordered Sig/Rox Route PRN Reason Start Time Stop Time Status Last Admin Aspirin 81 mg DAILY PO 05/08/25 10:00 05/08/25 02:53 DC Atorvastatin Calcium (Lipitor) 40 mg HS PO 05/08/25 22:00 05/08/25 21:23 Ferrous Sulfate 325 mg BIDWM PO 05/08/25 08:00 05/09/25 07:41 Timolol Maleate (Timoptic 0.5%) 1 drop BID EACHEYE 05/08/25 10:00 05/08/25 21:25 Latanoprost (Xalatan) 1 drop HS EACHEYE 05/08/25 22:00 05/08/25 21:25 Ceftriaxone Sodium 50 ml @ 100 mls/hr DAILY@09 IV 05/08/25 09:00 05/08/25 08:35 Enoxaparin Sodium (Lovenox) 40 mg DAILY SC 05/09/25 10:00 Review of Systems 10 point ROS as per HPI Vital Signs Vital Signs Date Time Temp Pulse Resp B/P (MAP) Pulse Ox O2 Delivery O2 Flow Rate FiO2 05/09/25 05:00 97.8 80 17 122/64 (83) 90 97.8 05/08/25 20:00 Room Air* 0 21 Physical Exam NAD LLE inc healed pain with PROM at hip SLR intact +TA/GS/EHL/FHL foot wwp Labs/Diagnostic Data Labs Test 05/09/25 05:55 05/08/25 06:10 05/07/25 21:28 05/07/25 21:25 Range/Units POC Glucose 225 H 70-106 mg/dl Prothrombin Time 10.3 9.3-11.8 sec Prothrombin Time INR 0.97 0.9-1.15 Activated Partial Thromboplast Time 25.6 24.5-34.5 SEC Hemoglobin A1c 8.3 H <5.7 % A1C Vitamin B12 Level 494 211-911 pg/mL Vitamin D 25-Hydroxy 86.4 30.0-100 ng/mL Thyroid Stimulating Hormone (TSH) 4.11 0.55-4.78 uIU/mL Urine Color Colorless Yellow Urine Clarity Clear Clear Urine pH 6.5 5.0-9.0 Urine Specific [place] 1.010 1.001-1.035 Urine Protein Negative Negative Urine Ketones 1+ H Negative Urine Blood Negative Negative /uL Urine Nitrite Negative Negative Urine Bilirubin Negative Negative Urine Urobilinogen Normal Negative mg/dL Urine Leukocyte Esterase 1+ Negative /uL Urine RBC <1 0 - 4 /hpf Urine Microscopic WBC 12 H 0-5 /HPF Urine Squamous Epithelial Cells Few <5 /hpf Urine Bacteria Many H None Seen /hpf Urine Glucose 3+ H Normal mg/dL White Blood Count 9.0 4.4-10.8 10^3/uL Red Blood Count 3.64 L 4.0-5.20 10^6/uL Hemoglobin 11.1 L 12.2-16.2 g/dL Hematocrit 33.6 L 36.0-46.0 % Mean Corpuscular Volume 92.2 80.0-100.0 fL Mean Corpuscular Hemoglobin 30.5 28.0-32.0 pg Mean Corpuscular Hemoglobin Concent 33.1 32.0-36.0 g/dL Red Cell Distribution Width 13.6 11.8-14.3 % Platelet Count 202 140-450 10^3/uL Mean Platelet Volume 8.9 6.9-10.8 fL Neutrophils (%) (Auto) 79.1 37.0-80.0 % Lymphocytes (%) (Auto) 12.4 10.0-50.0 % Monocytes (%) (Auto) 6.5 0.0-12.0 % Eosinophils (%) (Auto) 1.2 0.0-7.0 % Basophils (%) (Auto) 0.8 0.0-2.0 % Neutrophils # (Auto) 7.1 1.6-8.6 10 ^3/uL Lymphocytes # (Auto) 1.1 0.4-5.4 10 ^3/uL Monocytes # (Auto) 0.6 0-1.3 10 ^3/uL Eosinophils # (Auto) 0.1 0-0.8 10 ^3/uL Basophils # (Auto) 0.1 0-0.2 10 ^3/uL Nucleated Red Blood Cells 0.1 % Sodium Level 135 L 136-145 mmol/L Potassium Level 3.6 3.5-5.1 mmol/L Chloride Level 101 98-107 mmol/L Carbon Dioxide Level 22 20-31 mmol/L Anion Gap 12 5-15 Blood Urea Nitrogen 11 9-23 mg/dL Creatinine 0.66 0.550-1.02 mg/dL Glomerular Filtration Rate Calc 89 >90 mL/min BUN/Creatinine Ratio 16.7 10.0-20.0 Serum Glucose 221 H 74-106 mg/dL Calcium Level 10.3 8.7-10.4 mg/dL Plan/Recommendation 79 yo F with left superior/inferior pubic rami fracture 1. WBAT with walker 2. PT 3. pain control 4. dvt ppx 5. fu in [facility]o clinic in 4 weeks Plan discussed with: Patient ASHISH FOSTER MD May 09, 2025 07:49
[2025-05-09] MEDS: ENOXAPARIN SOD 40 MG/0.4 ML SYRINGE SC SCH (09:40)
[2025-05-09 10:17] LABS: Hepatitis B Surface Antigen Negative (Negative)
[2025-05-09 10:48] LABS: Hepatitis C Antibody Negative (Negative)
--- NOTE | 2025-05-09 18:28 | DVHPN2 ---
Subjective seen in bed resting Reviewed: H&P, Labs Changes from previous H/P or p: No Changes Eyes: No Pain, No Vision change, No Conjunctivae inflammation, No Eyelid inflammation, No Other, No Redness ENT: No Ear pain, No Ear discharge, No Nose pain, No Nose discharge, No Nose congestion, No Mouth pain, No Mouth swelling, No Throat pain, No Throat swelling, No Other Respiratory: No Cough, No Dry, No Shortness of breath, No SOB with excertion, No Wheezing, No Hemoptysis, No Pleuritic Pain, No Sputum, No Other Gastrointestinal: No Nausea, No Vomiting, No Abdominal Pain, No Diarrhea, No Constipation, No Melena, No Hematochezia, No Other Genitourinary: No Dysuria, No Frequency, No Incontinence, No Hematuria, No Retention, No Other Musculoskeletal: No other, No neck pain, No shoulder pain, No arm pain, No back pain, No hand pain; leg pain; No foot pain Skin: No Rash, No Lesions, No Jaundice, No Bruising, No Other Objective Vitals Vital Signs Date Time Temp Pulse Resp B/P (MAP) Pulse Ox O2 Delivery O2 Flow Rate FiO2 05/09/25 17:00 97.9 88 18 130/76 (94) 94 97.9 05/09/25 07:45 Room Air* 0 21 Intake/Output Intake and Output 05/09/25 07:00 Intake Total 650 ml Output Total 2150 ml Balance -1500 ml Intake Oral 600 ml IV Total 50 ml Output Urine Total 2150 ml General Appearance: Alert, Oriented X3 HEENT: Atraumatic Lungs: Clear to auscultation Cardiovascular: Regular rate, Normal S1, Normal S2 Abdomen: Normal bowel sounds Medications Current Medications Medications Dose Ordered Sig/Rox Route Start Time Stop Time Status Last Admin Dose Admin Atorvastatin Calcium 40 mg HS PO 05/08/25 22:00 05/08/25 21:23 40 MG Ferrous Sulfate 325 mg BIDWM PO 05/08/25 08:00 05/09/25 17:24 325 MG Timolol Maleate 1 drop BID EACHEYE 05/08/25 10:00 05/09/25 09:40 1 DROP Latanoprost 1 drop HS EACHEYE 05/08/25 22:00 05/08/25 21:25 1 DROP Diagnostic Test (Pha) 1 strip ACHS 05/08/25 07:00 05/09/25 17:19 1 STRIP Insulin Human Regular ACHS SC 05/08/25 07:00 05/09/25 17:24 4 UNITS Dextrose 50 ml UD PRN IV 05/08/25 03:00 Ceftriaxone Sodium 50 ml @ 100 mls/hr DAILY@09 IV 05/08/25 09:00 05/09/25 08:30 100 MLS/HR Morphine Sulfate 2 mg Q6HPRN PRN IV 05/08/25 03:00 05/08/25 21:24 2 MG Enoxaparin Sodium 40 mg DAILY SC 05/09/25 10:00 05/09/25 09:40 40 MG Sennosides 8.6 mg HS PO 05/09/25 22:00 Laboratory Results Laboratory Tests 05/07/25 21:25 Urinalysis Test 05/07/25 21:28 Urine Color Colorless (Yellow) Urine Clarity Clear (Clear) Urine pH 6.5 (5.0-9.0) Urine Specific [place] 1.010 (1.001-1.035) Urine Protein Negative (Negative) Urine Ketones 1+ (Negative) H Urine Blood Negative /uL (Negative) Urine Nitrite Negative (Negative) Urine Bilirubin Negative (Negative) Urine Urobilinogen Normal mg/dL (Negative) Urine Leukocyte Esterase 1+ /uL (Negative) Urine RBC <1 /hpf (0 - 4) Urine Microscopic WBC 12 /HPF (0-5) H Urine Squamous Epithelial Cells Few /hpf (<5) Urine Bacteria Many /hpf (None Seen) H Urine Glucose 3+ mg/dL (Normal) H Assessment/Plan Assessment/Plan # Displaced acute traumatic fractures of the left superior pubic rami and left inferior pubic rami -Patient came with pain on hip and pubic area -History of fall at home before came to hospital -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 No evidence of hardware complication. -Received cefepime, acetaminophen, morphine, ondansetron in ER -Tylenol 650 mg p.o. p.r.n. -Dilaudid 0.5 mg IV stat -Morphine 2 mg IV q.6 p.r.n. for pain -Orthopedic consult>non op management # Urinary tract infection - UA : Ketones 1+, leukocyte esterase 1+, WBC 12, bacteria many -Ceftriaxone 1 g daily -Urine culture follow # Type 2 diabetes mellitus with hyperglycemia -CMP blood sugar 221, on admission -Hold home medicine metformin 1000 mg -Insulin sliding scale -HbA1c # Hyperlipidemia Atorvastatin 40 mg p.o. daily # Normocytic normochromic anemia -Hemoglobin 11.1, HCT 33.6 Ferrous sulfate 325 mg p.o. daily # Glaucoma -Timolol 0.5% 1 drop both eye b.i.d. -Latanoprost 0.005% 1 drop each eye daily # Hyponatremia Sodium 135 DIET: REGULAR GI prophylaxis: Pantoprazole 40 mg p.o. daily DVT prophylaxis: Lovenox 30 mg sc daily. Dispo: Needs SNF placement Plan discussed with: Patient My Orders Orders - KEELEY HODGES MD Procedure Category Date Status Time Pt Request For Service PT 05/09/25 Logged 11:29 Senna Pod Tablet PHA 05/09/25 In Process (Senokot Tablet) 22:00 Date of Service: May 09, 2025 Billing Provider: KEELEY HODGES MD Common Visit Codes: [id number] INP/OBS CARE(HIGH) KEELEY HODGES MD May 09, 2025 18:28
[2025-05-09] MEDS: SENNA 8.6 MG TAB PO SCH (21:32)
[2025-05-10] VITALS (7 sets, daily range): BP systolic 121–139; BP diastolic 72–78; PULSE 81–100; RESP 16–20; TEMP 97.6–98.9; O2SAT 93–95
[2025-05-10] MEDS: LACTULOSE 20Gm/30ML SOLN PO PRN (11:16)
--- NOTE | 2025-05-10 15:34 | DVHPN2 ---
Subjective seen in bed resting Reviewed: H&P, Labs Changes from previous H/P or p: No Changes Eyes: No Pain, No Vision change, No Conjunctivae inflammation, No Eyelid inflammation, No Other, No Redness ENT: No Ear pain, No Ear discharge, No Nose pain, No Nose discharge, No Nose congestion, No Mouth pain, No Mouth swelling, No Throat pain, No Throat swelling, No Other Respiratory: No Cough, No Dry, No Shortness of breath, No SOB with excertion, No Wheezing, No Hemoptysis, No Pleuritic Pain, No Sputum, No Other Gastrointestinal: No Nausea, No Vomiting, No Abdominal Pain, No Diarrhea, No Constipation, No Melena, No Hematochezia, No Other Genitourinary: No Dysuria, No Frequency, No Incontinence, No Hematuria, No Retention, No Other Musculoskeletal: No other, No neck pain, No shoulder pain, No arm pain, No back pain, No hand pain; leg pain; No foot pain Skin: No Rash, No Lesions, No Jaundice, No Bruising, No Other Objective Vitals Vital Signs Date Time Temp Pulse Resp B/P (MAP) Pulse Ox O2 Delivery O2 Flow Rate FiO2 05/10/25 14:47 90 18 130/75 05/10/25 13:00 98.9 93 98.9 05/10/25 08:12 Room Air* 0 21 Intake/Output Intake and Output 05/10/25 07:00 Intake Total 1850 ml Output Total 2900 ml Balance -1050 ml Intake Oral 1800 ml IV Total 50 ml Output Urine Total 2900 ml General Appearance: Alert, Oriented X3 HEENT: Atraumatic Lungs: Clear to auscultation Cardiovascular: Regular rate, Normal S1, Normal S2 Abdomen: Normal bowel sounds Medications Current Medications Medications Dose Ordered Sig/Rox Route Start Time Stop Time Status Last Admin Dose Admin Atorvastatin Calcium 40 mg HS PO 05/08/25 22:00 05/09/25 21:31 40 MG Ferrous Sulfate 325 mg BIDWM PO 05/08/25 08:00 05/10/25 08:48 325 MG Timolol Maleate 1 drop BID EACHEYE 05/08/25 10:00 05/10/25 08:48 1 DROP Latanoprost 1 drop HS EACHEYE 05/08/25 22:00 05/09/25 21:31 1 DROP Diagnostic Test (Pha) 1 strip ACHS 7/17/25 07:00 05/10/25 11:23 1 STRIP Insulin Human Regular ACHS SC 05/08/25 07:00 05/10/25 11:23 6 UNITS Dextrose 50 ml UD PRN IV 05/08/25 03:00 Ceftriaxone Sodium 50 ml @ 100 mls/hr DAILY@09 IV 05/08/25 09:00 05/10/25 08:48 100 MLS/HR Morphine Sulfate 2 mg Q6HPRN PRN IV 05/08/25 03:00 05/10/25 14:47 2 MG Enoxaparin Sodium 40 mg DAILY SC 05/09/25 10:00 05/10/25 08:48 40 MG Sennosides 8.6 mg HS PO 05/09/25 22:00 05/09/25 21:32 8.6 MG Lactulose 30 ml TIDPRN PRN PO 05/10/25 10:30 05/10/25 11:16 30 ML Laboratory Results Laboratory Tests 05/07/25 21:25 Urinalysis Test 05/07/25 21:28 Urine Color Colorless (Yellow) Urine Clarity Clear (Clear) Urine pH 6.5 (5.0-9.0) Urine Specific [place] 1.010 (1.001-1.035) Urine Protein Negative (Negative) Urine Ketones 1+ (Negative) H Urine Blood Negative /uL (Negative) Urine Nitrite Negative (Negative) Urine Bilirubin Negative (Negative) Urine Urobilinogen Normal mg/dL (Negative) Urine Leukocyte Esterase 1+ /uL (Negative) Urine RBC <1 /hpf (0 - 4) Urine Microscopic WBC 12 /HPF (0-5) H Urine Squamous Epithelial Cells Few /hpf (<5) Urine Bacteria Many /hpf (None Seen) H Urine Glucose 3+ mg/dL (Normal) H Assessment/Plan Assessment/Plan # Displaced acute traumatic fractures of the left superior pubic rami and left inferior pubic rami -Patient came with pain on hip and pubic area -History of fall at home before came to hospital -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 No evidence of hardware complication. -Received cefepime, acetaminophen, morphine, ondansetron in ER -Tylenol 650 mg p.o. p.r.n. -Dilaudid 0.5 mg IV stat -Morphine 2 mg IV q.6 p.r.n. for pain -Orthopedic consult>non op management # Urinary tract infection - UA : Ketones 1+, leukocyte esterase 1+, WBC 12, bacteria many -Ceftriaxone 1 g daily -Urine culture follow # Type 2 diabetes mellitus with hyperglycemia -CMP blood sugar 221, on admission -Hold home medicine metformin 1000 mg -Insulin sliding scale -HbA1c # Hyperlipidemia Atorvastatin 40 mg p.o. daily # Normocytic normochromic anemia -Hemoglobin 11.1, HCT 33.6 Ferrous sulfate 325 mg p.o. daily # Glaucoma -Timolol 0.5% 1 drop both eye b.i.d. -Latanoprost 0.005% 1 drop each eye daily # Hyponatremia Sodium 135 DIET: REGULAR GI prophylaxis: Pantoprazole 40 mg p.o. daily DVT prophylaxis: Lovenox 30 mg sc daily. Dispo: Needs SNF placement Plan discussed with: Patient My Orders Orders - KEELEY HODGES MD Procedure Category Date Status Time * Data Compiler CONS 05/09/25 Transmitted Consult Lactulose Oral PHA 05/10/25 In Process 10:30 Tap Water Enema ORDERS 05/10/25 Transmitted 12:19 Date of Service: May 10, 2025 Billing Provider: KEELEY HODGES MD Common Visit Codes: [id number] INP/OBS CARE(HIGH) KEELEY HODGES MD May 10, 2025 15:34
[2025-05-11] VITALS (7 sets, daily range): BP systolic 112–139; BP diastolic 62–78; PULSE 62–104; RESP 16–20; TEMP 97.7–98.5; O2SAT 92–98
--- NOTE | 2025-05-11 15:05 | DVHPN2 ---
Subjective seen in bed resting Reviewed: H&P, Labs Changes from previous H/P or p: No Changes Eyes: No Pain, No Vision change, No Conjunctivae inflammation, No Eyelid inflammation, No Other, No Redness ENT: No Ear pain, No Ear discharge, No Nose pain, No Nose discharge, No Nose congestion, No Mouth pain, No Mouth swelling, No Throat pain, No Throat swelling, No Other Respiratory: No Cough, No Dry, No Shortness of breath, No SOB with excertion, No Wheezing, No Hemoptysis, No Pleuritic Pain, No Sputum, No Other Gastrointestinal: No Nausea, No Vomiting, No Abdominal Pain, No Diarrhea, No Constipation, No Melena, No Hematochezia, No Other Genitourinary: No Dysuria, No Frequency, No Incontinence, No Hematuria, No Retention, No Other Musculoskeletal: No other, No neck pain, No shoulder pain, No arm pain, No back pain, No hand pain; leg pain; No foot pain Skin: No Rash, No Lesions, No Jaundice, No Bruising, No Other Objective Vitals Vital Signs Date Time Temp Pulse Resp B/P (MAP) Pulse Ox O2 Delivery O2 Flow Rate FiO2 05/11/25 12:41 97.8 90 20 112/62 (79) 92 97.8 05/11/25 08:11 Room Air* 0 21 Intake/Output Intake and Output 05/11/25 07:00 Intake Total 1640 ml Output Total 2450 ml Balance -810 ml Intake Oral 1590 ml IV Total 50 ml Output Urine Total 2450 ml # Bowel Movements 1 General Appearance: Alert, Oriented X3 HEENT: Atraumatic Lungs: Clear to auscultation Cardiovascular: Regular rate, Normal S1, Normal S2 Abdomen: Normal bowel sounds Medications Current Medications Medications Dose Ordered Sig/Rox Route Start Time Stop Time Status Last Admin Dose Admin Atorvastatin Calcium 40 mg HS PO 05/08/25 22:00 05/10/25 21:29 40 MG Ferrous Sulfate 325 mg BIDWM PO 05/08/25 08:00 05/10/25 08:48 325 MG Timolol Maleate 1 drop BID EACHEYE 05/08/25 10:00 05/11/25 09:08 1 DROP Latanoprost 1 drop HS EACHEYE 05/08/25 22:00 05/10/25 21:29 1 DROP Diagnostic Test (Pha) 1 strip ACHS 05/08/25 07:00 05/11/25 11:25 1 STRIP Insulin Human Regular ACHS SC 05/08/25 07:00 05/11/25 11:30 10 UNITS Dextrose 50 ml UD PRN IV 05/08/25 03:00 Ceftriaxone Sodium 50 ml @ 100 mls/hr DAILY@09 IV 05/08/25 09:00 05/11/25 09:08 100 MLS/HR Morphine Sulfate 2 mg Q6HPRN PRN IV 05/08/25 03:00 05/10/25 14:47 2 MG Enoxaparin Sodium 40 mg DAILY SC 05/09/25 10:00 05/11/25 09:08 40 MG Sennosides 8.6 mg HS PO 05/09/25 22:00 05/10/25 21:29 8.6 MG Lactulose 30 ml TIDPRN PRN PO 05/10/25 10:30 05/10/25 18:47 30 ML Laboratory Results Laboratory Tests 05/07/25 21:25 Urinalysis Test 05/07/25 21:28 Urine Color Colorless (Yellow) Urine Clarity Clear (Clear) Urine pH 6.5 (5.0-9.0) Urine Specific [place] 1.010 (1.001-1.035) Urine Protein Negative (Negative) Urine Ketones 1+ (Negative) H Urine Blood Negative /uL (Negative) Urine Nitrite Negative (Negative) Urine Bilirubin Negative (Negative) Urine Urobilinogen Normal mg/dL (Negative) Urine Leukocyte Esterase 1+ /uL (Negative) Urine RBC <1 /hpf (0 - 4) Urine Microscopic WBC 12 /HPF (0-5) H Urine Squamous Epithelial Cells Few /hpf (<5) Urine Bacteria Many /hpf (None Seen) H Urine Glucose 3+ mg/dL (Normal) H Assessment/Plan Assessment/Plan # Displaced acute traumatic fractures of the left superior pubic rami and left inferior pubic rami -Patient came with pain on hip and pubic area -History of fall at home before came to hospital -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 No evidence of hardware complication. -Received cefepime, acetaminophen, morphine, ondansetron in ER -Tylenol 650 mg p.o. p.r.n. -Dilaudid 0.5 mg IV stat -Morphine 2 mg IV q.6 p.r.n. for pain -Orthopedic consult>non op management # Urinary tract infection - UA : Ketones 1+, leukocyte esterase 1+, WBC 12, bacteria many -Ceftriaxone 1 g daily -Urine culture follow # Type 2 diabetes mellitus with hyperglycemia -CMP blood sugar 221, on admission -Hold home medicine metformin 1000 mg -Insulin sliding scale -HbA1c # Hyperlipidemia Atorvastatin 40 mg p.o. daily # Normocytic normochromic anemia -Hemoglobin 11.1, HCT 33.6 Ferrous sulfate 325 mg p.o. daily # Glaucoma -Timolol 0.5% 1 drop both eye b.i.d. -Latanoprost 0.005% 1 drop each eye daily # Hyponatremia Sodium 135 DIET: REGULAR GI prophylaxis: Pantoprazole 40 mg p.o. daily DVT prophylaxis: Lovenox 30 mg sc daily. Dispo: Needs SNF placement Plan discussed with: Patient Date of Service: May 11, 2025 Billing Provider: KEELEY HODGES MD Common Visit Codes: [id number] INP/OBS CARE(HIGH) KEELEY HODGES MD May 11, 2025 15:05
[2025-05-12 01:00] VITALS: BP 117/58; PULSE 92; RESP 18; TEMP 97.8; O2SAT 97
[2025-05-12 05:00] VITALS: BP 117/64; PULSE 95; RESP 17; TEMP 98.8; O2SAT 96
[2025-05-12 12:30] VITALS: BP 128/78; PULSE 96; RESP 14; TEMP 97.7; O2SAT 95
--- NOTE | 2025-05-12 15:10 | MEDREC ---
[facility] Intervention Section I [facility] Intervention: Review courses of therapy (NO SXS OF UTI AND COMPLETE COURSE OF THERAPY, PLEASE CONSIDER D/C CEFTRIAXONE) [facility] May 12, 2025 15:10
[2025-05-12 17:30] VITALS: BP 139/74; PULSE 99; RESP 16; TEMP 97.3; O2SAT 96
--- NOTE | 2025-05-12 17:44 | DVHPN2 ---
Subjective seen in bed resting Reviewed: H&P, Labs Changes from previous H/P or p: No Changes Eyes: No Pain, No Vision change, No Conjunctivae inflammation, No Eyelid inflammation, No Other, No Redness ENT: No Ear pain, No Ear discharge, No Nose pain, No Nose discharge, No Nose congestion, No Mouth pain, No Mouth swelling, No Throat pain, No Throat swelling, No Other Respiratory: No Cough, No Dry, No Shortness of breath, No SOB with excertion, No Wheezing, No Hemoptysis, No Pleuritic Pain, No Sputum, No Other Gastrointestinal: No Nausea, No Vomiting, No Abdominal Pain, No Diarrhea, No Constipation, No Melena, No Hematochezia, No Other Genitourinary: No Dysuria, No Frequency, No Incontinence, No Hematuria, No Retention, No Other Musculoskeletal: No other, No neck pain, No shoulder pain, No arm pain, No back pain, No hand pain; leg pain; No foot pain Skin: No Rash, No Lesions, No Jaundice, No Bruising, No Other Objective Vitals Vital Signs Date Time Temp Pulse Resp B/P (MAP) Pulse Ox O2 Delivery O2 Flow Rate FiO2 05/12/25 12:23 96 16 128/78 05/12/25 07:42 Room Air* 0 21 05/12/25 05:00 98.8 96 98.8 Intake/Output Intake and Output 05/12/25 07:00 Intake Total 2830 ml Output Total 2800 ml Balance 30 ml Intake Oral 2780 ml IV Total 50 ml Output Urine Total 2800 ml # Bowel Movements 1 General Appearance: Alert, Oriented X3 HEENT: Atraumatic Lungs: Clear to auscultation Cardiovascular: Regular rate, Normal S1, Normal S2 Abdomen: Normal bowel sounds Medications Current Medications Medications Dose Ordered Sig/Rox Route Start Time Stop Time Status Last Admin Dose Admin Atorvastatin Calcium 40 mg HS PO 05/08/25 22:00 05/11/25 21:22 40 MG Ferrous Sulfate 325 mg BIDWM PO 05/08/25 08:00 05/10/25 08:48 325 MG Timolol Maleate 1 drop BID EACHEYE 05/08/25 10:00 05/12/25 08:38 1 DROP Latanoprost 1 drop HS EACHEYE 05/08/25 22:00 05/11/25 21:22 1 DROP Diagnostic Test (Pha) 1 strip ACHS 05/08/25 07:00 05/12/25 16:38 1 STRIP Insulin Human Regular ACHS SC 05/08/25 07:00 05/12/25 17:03 3 UNITS Dextrose 50 ml UD PRN IV 05/08/25 03:00 Ceftriaxone Sodium 50 ml @ 100 mls/hr DAILY@09 IV 05/08/25 09:00 05/12/25 08:38 100 MLS/HR Morphine Sulfate 2 mg Q6HPRN PRN IV 05/08/25 03:00 05/12/25 11:15 2 MG Enoxaparin Sodium 40 mg DAILY SC 05/09/25 10:00 05/12/25 08:38 40 MG Sennosides 8.6 mg HS PO 05/09/25 22:00 05/10/25 21:29 8.6 MG Lactulose 30 ml TIDPRN PRN PO 05/10/25 10:30 05/10/25 18:47 30 ML Laboratory Results Laboratory Tests 05/07/25 21:25 Urinalysis Test 05/07/25 21:28 Urine Color Colorless (Yellow) Urine Clarity Clear (Clear) Urine pH 6.5 (5.0-9.0) Urine Specific [place] 1.010 (1.001-1.035) Urine Protein Negative (Negative) Urine Ketones 1+ (Negative) H Urine Blood Negative /uL (Negative) Urine Nitrite Negative (Negative) Urine Bilirubin Negative (Negative) Urine Urobilinogen Normal mg/dL (Negative) Urine Leukocyte Esterase 1+ /uL (Negative) Urine RBC <1 /hpf (0 - 4) Urine Microscopic WBC 12 /HPF (0-5) H Urine Squamous Epithelial Cells Few /hpf (<5) Urine Bacteria Many /hpf (None Seen) H Urine Glucose 3+ mg/dL (Normal) H Assessment/Plan Assessment/Plan # Displaced acute traumatic fractures of the left superior pubic rami and left inferior pubic rami -Patient came with pain on hip and pubic area -History of fall at home before came to hospital -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 No evidence of hardware complication. -Received cefepime, acetaminophen, morphine, ondansetron in ER -Tylenol 650 mg p.o. p.r.n. -Dilaudid 0.5 mg IV stat -Morphine 2 mg IV q.6 p.r.n. for pain -Orthopedic consult>non op management # Urinary tract infection - UA : Ketones 1+, leukocyte esterase 1+, WBC 12, bacteria many -Ceftriaxone 1 g daily -Urine culture follow # Type 2 diabetes mellitus with hyperglycemia -CMP blood sugar 221, on admission -Hold home medicine metformin 1000 mg -Insulin sliding scale -HbA1c # Hyperlipidemia Atorvastatin 40 mg p.o. daily # Normocytic normochromic anemia -Hemoglobin 11.1, HCT 33.6 Ferrous sulfate 325 mg p.o. daily # Glaucoma -Timolol 0.5% 1 drop both eye b.i.d. -Latanoprost 0.005% 1 drop each eye daily # Hyponatremia Sodium 135 DIET: REGULAR GI prophylaxis: Pantoprazole 40 mg p.o. daily DVT prophylaxis: Lovenox 30 mg sc daily. Dispo: Needs SNF placement Plan discussed with: Patient My Orders Orders - KEELEY HODGES MD Procedure Category Date Status Time * Senior Environmental Practice Leader CONS 05/12/25 Transmitted Consult 13:35 Date of Service: May 12, 2025 Billing Provider: KEELEY HODGES MD Common Visit Codes: [id number] INP/OBS CARE(HIGH) KEELEY HODGES MD May 12, 2025 17:44
[2025-05-12 20:00] VITALS: PULSE 86; RESP 17; O2SAT 97
[2025-05-12 21:00] VITALS: BP 124/56; PULSE 86; RESP 17; TEMP 96.6; O2SAT 97
[2025-05-13] VITALS (8 sets, daily range): BP systolic 122–137; BP diastolic 62–76; PULSE 79–102; RESP 14–18; TEMP 95.5–98.7; O2SAT 95–97
--- NOTE | 2025-05-13 16:05 | DVHPN2 ---
Subjective seen in bed resting Reviewed: H&P, Labs Changes from previous H/P or p: No Changes Eyes: No Pain, No Vision change, No Conjunctivae inflammation, No Eyelid inflammation, No Other, No Redness ENT: No Ear pain, No Ear discharge, No Nose pain, No Nose discharge, No Nose congestion, No Mouth pain, No Mouth swelling, No Throat pain, No Throat swelling, No Other Respiratory: No Cough, No Dry, No Shortness of breath, No SOB with excertion, No Wheezing, No Hemoptysis, No Pleuritic Pain, No Sputum, No Other Gastrointestinal: No Nausea, No Vomiting, No Abdominal Pain, No Diarrhea, No Constipation, No Melena, No Hematochezia, No Other Genitourinary: No Dysuria, No Frequency, No Incontinence, No Hematuria, No Retention, No Other Musculoskeletal: No other, No neck pain, No shoulder pain, No arm pain, No back pain, No hand pain; leg pain; No foot pain Skin: No Rash, No Lesions, No Jaundice, No Bruising, No Other Objective Vitals Vital Signs Date Time Temp Pulse Resp B/P (MAP) Pulse Ox O2 Delivery O2 Flow Rate FiO2 05/13/25 13:00 97.6 79 16 122/72 (89) 96 97.6 05/13/25 08:00 Room Air* 0 21 Intake/Output Intake and Output 05/13/25 07:00 Intake Total 550 ml Output Total 1800 ml Balance -1250 ml Intake Oral 500 ml IV Total 50 ml Output Urine Total 1800 ml # Bowel Movements 1 General Appearance: Alert, Oriented X3 HEENT: Atraumatic Lungs: Clear to auscultation Cardiovascular: Regular rate, Normal S1, Normal S2 Abdomen: Normal bowel sounds Medications Current Medications Medications Dose Ordered Sig/Rox Route Start Time Stop Time Status Last Admin Dose Admin Atorvastatin Calcium 40 mg HS PO 05/08/25 22:00 05/12/25 21:05 40 MG Ferrous Sulfate 325 mg BIDWM PO 05/08/25 08:00 05/10/25 08:48 325 MG Timolol Maleate 1 drop BID EACHEYE 05/08/25 10:00 05/13/25 08:56 1 DROP Latanoprost 1 drop HS EACHEYE 05/08/25 22:00 05/12/25 21:05 1 DROP Diagnostic Test (Pha) 1 strip ACHS 05/08/25 07:00 05/13/25 11:46 1 STRIP Insulin Human Regular ACHS SC 05/08/25 07:00 05/13/25 06:40 4 UNITS Dextrose 50 ml UD PRN IV 05/08/25 03:00 Ceftriaxone Sodium 50 ml @ 100 mls/hr DAILY@09 IV 05/08/25 09:00 05/13/25 08:57 100 MLS/HR Morphine Sulfate 2 mg Q6HPRN PRN IV 05/08/25 03:00 05/12/25 11:15 2 MG Enoxaparin Sodium 40 mg DAILY SC 05/09/25 10:00 05/13/25 08:56 40 MG Sennosides 8.6 mg HS PO 05/09/25 22:00 05/12/25 21:05 8.6 MG Lactulose 30 ml TIDPRN PRN PO 05/10/25 10:30 05/10/25 18:47 30 ML Laboratory Results Laboratory Tests 05/07/25 21:25 Urinalysis Test 05/07/25 21:28 Urine Color Colorless (Yellow) Urine Clarity Clear (Clear) Urine pH 6.5 (5.0-9.0) Urine Specific [place] 1.010 (1.001-1.035) Urine Protein Negative (Negative) Urine Ketones 1+ (Negative) H Urine Blood Negative /uL (Negative) Urine Nitrite Negative (Negative) Urine Bilirubin Negative (Negative) Urine Urobilinogen Normal mg/dL (Negative) Urine Leukocyte Esterase 1+ /uL (Negative) Urine RBC <1 /hpf (0 - 4) Urine Microscopic WBC 12 /HPF (0-5) H Urine Squamous Epithelial Cells Few /hpf (<5) Urine Bacteria Many /hpf (None Seen) H Urine Glucose 3+ mg/dL (Normal) H Assessment/Plan Assessment/Plan # Displaced acute traumatic fractures of the left superior pubic rami and left inferior pubic rami -Patient came with pain on hip and pubic area -History of fall at home before came to hospital -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 No evidence of hardware complication. -Received cefepime, acetaminophen, morphine, ondansetron in ER -Tylenol 650 mg p.o. p.r.n. -Dilaudid 0.5 mg IV stat -Morphine 2 mg IV q.6 p.r.n. for pain -Orthopedic consult>non op management # Urinary tract infection - UA : Ketones 1+, leukocyte esterase 1+, WBC 12, bacteria many -Ceftriaxone 1 g daily -completed IV abx # Type 2 diabetes mellitus with hyperglycemia -CMP blood sugar 221, on admission -Hold home medicine metformin 1000 mg -Insulin sliding scale -HbA1c # Hyperlipidemia Atorvastatin 40 mg p.o. daily # Normocytic normochromic anemia -Hemoglobin 11.1, HCT 33.6 Ferrous sulfate 325 mg p.o. daily # Glaucoma -Timolol 0.5% 1 drop both eye b.i.d. -Latanoprost 0.005% 1 drop each eye daily # Hyponatremia Sodium 135 DIET: REGULAR GI prophylaxis: Pantoprazole 40 mg p.o. daily DVT prophylaxis: Lovenox 30 mg sc daily. Dispo: Needs SNF placement Plan discussed with: Patient My Orders Orders - KEELEY HODGES MD Procedure Category Date Status Time * Teletype Clerk CONS 05/13/25 Transmitted Consult 13:54 Date of Service: May 13, 2025 Billing Provider: KEELEY HODGES MD Common Visit Codes: [id number] INP/OBS CARE(HIGH) KEELEY HODGES MD May 13, 2025 16:05
[2025-05-14] MEDS ORDERED: HYDROcodone-ACET 5/325MG TAB PO PRN (04:30)
[2025-05-14 05:19] VITALS: BP 118/76; PULSE 95; RESP 16; TEMP 98.2; O2SAT 96
[2025-05-14 08:00] VITALS: PULSE 85; RESP 18; O2SAT 97
[2025-05-14 09:00] VITALS: BP 133/81; PULSE 85; RESP 20; TEMP 98.6; O2SAT 97
[2025-05-14 12:08] VITALS: BP 133/81; PULSE 85; RESP 18; TEMP 98.4; O2SAT 97
[2025-05-14 13:00] VITALS: BP 123/70; PULSE 79; RESP 20; TEMP 98.4; O2SAT 95
[2025-05-14 16:56] VITALS: BP 128/73; PULSE 87; RESP 20; TEMP 98.4; O2SAT 95
--- NOTE | 2025-05-14 17:03 | DVHDS2 ---
Discharge Summary Date of Admission May 07, 2025 at 23:58 Date of Discharge: May 14, 2025 Labs/Diagnostic Data: Laboratory Results Test 05/14/25 10:54 05/08/25 06:10 05/07/25 21:28 05/07/25 21:25 POC Glucose 352 mg/dl (70-106) Prothrombin Time 10.3 sec (9.3-11.8) Prothrombin Time INR 0.97 (0.9-1.15) Activated Partial Thromboplast Time 25.6 SEC (24.5-34.5) Hemoglobin A1c 8.3 % A1C (<5.7) Vitamin B12 Level 494 pg/mL (211-911) Vitamin D 25-Hydroxy 86.4 ng/mL (30.0-100) Thyroid Stimulating Hormone (TSH) 4.11 uIU/mL (0.55-4.78) Hepatitis B Surface Antigen Negative (Negative) Hepatitis C Antibody Negative (Negative) Urine Color Colorless (Yellow) Urine Clarity Clear (Clear) Urine pH 6.5 (5.0-9.0) Urine Specific [place] 1.010 (1.001-1.035) Urine Protein Negative (Negative) Urine Ketones 1+ (Negative) Urine Blood Negative /uL (Negative) Urine Nitrite Negative (Negative) Urine Bilirubin Negative (Negative) Urine Urobilinogen Normal mg/dL (Negative) Urine Leukocyte Esterase 1+ /uL (Negative) Urine RBC <1 /hpf (0 - 4) Urine Microscopic WBC 12 /HPF (0-5) Urine Squamous Epithelial Cells Few /hpf (<5) Urine Bacteria Many /hpf (None Seen) Urine Glucose 3+ mg/dL (Normal) White Blood Count 9.0 10^3/uL (4.4-10.8) Red Blood Count 3.64 10^6/uL (4.0-5.20) Hemoglobin 11.1 g/dL (12.2-16.2) Hematocrit 33.6 % (36.0-46.0) Mean Corpuscular Volume 92.2 fL (80.0-100.0) Mean Corpuscular Hemoglobin 30.5 pg (28.0-32.0) Mean Corpuscular Hemoglobin Concent 33.1 g/dL (32.0-36.0) Red Cell Distribution Width 13.6 % (11.8-14.3) Platelet Count 202 10^3/uL (140-450) Mean Platelet Volume 8.9 fL (6.9-10.8) Neutrophils (%) (Auto) 79.1 % (37.0-80.0) Lymphocytes (%) (Auto) 12.4 % (10.0-50.0) Monocytes (%) (Auto) 6.5 % (0.0-12.0) Eosinophils (%) (Auto) 1.2 % (0.0-7.0) Basophils (%) (Auto) 0.8 % (0.0-2.0) Neutrophils # (Auto) 7.1 10 ^3/uL (1.6-8.6) Lymphocytes # (Auto) 1.1 10 ^3/uL (0.4-5.4) Monocytes # (Auto) 0.6 10 ^3/uL (0-1.3) Eosinophils # (Auto) 0.1 10 ^3/uL (0-0.8) Basophils # (Auto) 0.1 10 ^3/uL (0-0.2) Nucleated Red Blood Cells 0.1 % Sodium Level 135 mmol/L (136-145) Potassium Level 3.6 mmol/L (3.5-5.1) Chloride Level 101 mmol/L (98-107) Carbon Dioxide Level 22 mmol/L (20-31) Anion Gap 12 (5-15) Blood Urea Nitrogen 11 mg/dL (9-23) Creatinine 0.66 mg/dL (0.550-1.02) Glomerular Filtration Rate Calc 89 mL/min (>90) BUN/Creatinine Ratio 16.7 (10.0-20.0) Serum Glucose 221 mg/dL (74-106) Calcium Level 10.3 mg/dL (8.7-10.4) Other Laboratory Tests 05/07/25 21:25 Brief Hx & Hospital Course: 79-year-old female with past medical history of DM2, HLD, HTN, left hip surgery 15 years ago, Anemia, Glaucoma BIBEMS due to left hip and left sided pubic area pain. As per patient, she lives alone, was trying to move herself from reclining chair at evening time and suddenly slipped, eventually landed on left side of the hip and started pain which is 10/10 intensity, localized, continuous dull pain, aggravated on movement and no relieving factor. Patient stated she heard a sound but not sure it is bone fracture or not.she had history of left hip surgery approximately 15 years ago. Patient denies hitting her head, loss of consciousness, vertigo, headache, chest pain, SOB, abdominal pain, dysuria. Susan (RN) interpreting [place]yr[place] language. Patient ambulating at home with walker. Ortho recommended non op management UTI resolved Condition at Discharge: Good Final Diagnosis/Problems List pubic bone fracture UTI Discharge Disposition: [facility] Facility Discharge Instruct/Medications Diet: Regular Activity: No Restrictions, As Tolerated Follow Up/Referral: PCP in 7 days Medications: same home medications Scheduled Aspirin (Aspirin Low Dose), 81 MG PO DAILY Atorvastatin Calcium (Lipitor), 1 TAB PO DAILY Ferrous Sulfate (Ferrous Sulfate), 325 MG PO DAILY Ibuprofen Micronized (Ibuprofen), 1 TAB PO TID, (Reported) Losartan Potassium (Losartan Potassium), 1 TAB PO DAILY Metformin Hydrochloride (Metformin Hcl), 1 TAB PO BID, (Reported) Miscellaneous Medications Glucose Blood ([email or web address] Iq Test St), STRIP, (Reported) Insulin Glargine (Basaglar Kwikpen), SC, (Reported) Latanoprost (Latanoprost), EACHEYE, (Reported) Timolol Maleate (Ophth) (Timolol Maleate), EACHEYE, (Reported) Durable Medical Equipment Insulin Pen Needle (Easy Comfort Pen [place] 33G X 4 mm), (Reported), (DME) Discharge Statement: "Patient was advised to return to the ER or call 911 if any headaches, dizziness, shortness of breath, chest pain, abdominal pain, bleeding, fevers, or worsening of medical condition. Patient was counseled about treatment plan, medications, possible side effects, patientverbalized understanding. All questions were answered to the best of my ability. This discharge took greater then 30 minutes in planning, reviewing documentation, counseling the patient, and discussing with other team members." ASSESSMENT ASSESSMENT Assessment pubic bone fracture UTI Date of Service: May 14, 2025 Billing Provider: KEELEY HODGES MD Common Visit Codes: [id number] DISCH DAY >30min KEELEY HODGES MD May 14, 2025 17:03
== END 2025-05-14 18:31 | DRG 536 ==
LOC: ER 20:23 → EDBD 20:23 → OVERFLOW 23:58 → EAST 05-08 06:16
PROVIDERS: ADMIT Hospitalist; ATTEND Hospitalist
DX: S32.592A Other specified fracture of left pubis, initial encounter for closed fracture (principal); E87.1 Hypo-osmolality and hyponatremia; N39.0 Urinary tract infection, site not specified; Z66 Do not resuscitate; D64.9 Anemia, unspecified; E11.65 Type 2 diabetes mellitus with hyperglycemia; E78.5 Hyperlipidemia, unspecified; I10 Essential (primary) hypertension; H40.89 Other specified glaucoma; Z79.899 Other long term (current) drug therapy; Z79.84 Long term (current) use of oral hypoglycemic drugs; Z79.82 Long term (current) use of aspirin; Z79.4 Long term (current) use of insulin; Z96.642 Presence of left artificial hip joint; W01.0XXA Fall on same level from slipping, tripping and stumbling without subsequent striking against object, initial encounter; Y93.89 Activity, other specified; Y92.89 Other specified places as the place of occurrence of the external cause; Y99.8 Other external cause status
CPT/HCPCS: 36415; 71045; 73700; 80048; 81001; 82306; 82607; 82962; 83036; 84443; 85025; 85610; 85730; 86803; 87340; 96365; 96375; 97110; 97116; 97163; 97530; G0378; J1815; J2405